=== PATIENT | female | born 1955 | race American Indian/Alaskan Native ===

== ENCOUNTER 2021-06-10 10:31 | Day surgery (SDC) | payer MEDICARE, OTHER ==
[~2021-06-10 10:31] MED LIST: Lactated Ringers 1,000 ML IV SCH
[2021-06-10] MEDS ORDERED: Lidocaine 1% 5 ML VIAL ONE (11:35)
[2021-06-10] MEDS ORDERED: fentaNYL 100 MCG/2 ML SDV ONE (11:35)
[2021-06-10] MEDS ORDERED: propofoL 50 ML ONE (11:52)
[2021-06-10] MEDS ORDERED: Propofol 200 MG/20 ML SDV ONE (13:30)
[2021-06-10] MEDS ORDERED: Lactated Ringers 1,000 ML IV SCH (14:00)
[2021-06-10 14:48] VITALS: BP 144/79; PULSE 60
== END 2021-06-10 14:27 | disposition home or self-care (01) ==
LOC: MW.SDS 10:31
PROVIDERS: ATTEND Surgery
DX: Z12.11 Encounter for screening for malignant neoplasm of colon (principal); D12.3 Benign neoplasm of transverse colon; F41.9 Anxiety disorder, unspecified; I10 Essential (primary) hypertension; F17.210 Nicotine dependence, cigarettes, uncomplicated; E66.9 Obesity, unspecified; Z68.34 Body mass index [BMI] 34.0-34.9, adult; Z79.899 Other long term (current) drug therapy; Z98.890 Other specified postprocedural states; Z90.49 Acquired absence of other specified parts of digestive tract
CPT/HCPCS: 45380; J2704; J3010; J7120; 00812